=== PATIENT | male | born 1980 ===

== ENCOUNTER 2018-10-08 21:52 | Emergency (ER) | payer OTHER ==
[~2018-10-08] VITALS: Ht 152.4 cm; Wt 54.4 kg
[~2018-10-08 21:52] MED LIST: CYCLOBENZAPRINE10 MG PO; HYDROCODONE BIT1 T11 PO; NAPROSYN500 MG PO; NORCO 5-325 TA1 EACH PO
== END 2018-10-09 00:10 | disposition home or self-care (01) ==
LOC: ED 21:52
DX: S80.11XA Contusion of right lower leg, initial encounter (principal); M54.6 Pain in thoracic spine; Z79.899 Other long term (current) drug therapy; W55.12XA Struck by horse, initial encounter; Y93.89 Activity, other specified; Y92.89 Other specified places as the place of occurrence of the external cause; Y99.8 Other external cause status

== ENCOUNTER 2020-12-12 20:08 | Emergency (ER) | payer OTHER ==
[~2020-12-12] VITALS: Wt 54.0 kg
[2020-12-12] MEDS ORDERED: NAPROXEN250 MG PO (21:51)
== END 2020-12-12 22:30 | disposition home or self-care (01) ==
LOC: ED 20:08
DX: M25.552 Pain in left hip (principal); M25.572 Pain in left ankle and joints of left foot; Z79.899 Other long term (current) drug therapy; Z98.890 Other specified postprocedural states; V80.010A Animal-rider injured by fall from or being thrown from horse in noncollision accident, initial encounter; Y93.52 Activity, horseback riding; Y92.39 Other specified sports and athletic area as the place of occurrence of the external cause; Y99.8 Other external cause status

== ENCOUNTER 2023-04-09 20:59 | Emergency (ER) | payer OTHER ==
[~2023-04-09] VITALS: Ht 157.4 cm; Wt 52.2 kg
[~2023-04-09 20:59] MED LIST changes: +NAPROXEN250 MG PO
[2023-04-09] MEDS ORDERED: PREDNISONE20 M1 PO (23:51)
[2023-04-10 00:23] LABS: BASO # 0.1 10*3/uL (0.0-0.1); BASO % 0.3 % (0.0-1.0); EOS % 0.2 % (1.0-4.0); HEMATOCRIT 39.6 % (42.0-52.0); MEAN CELL VOLUME 88.2 fl (80.0-94.0); MEAN CORPUSCULAR HGB 30.3 pg (27.0-31.0); MEAN CORPUSCULAR HGB CONC 34.3 g/dl (33.0-37.0); MEAN PLATELET VOLUME 8.7 fl (9.6-12.3); MONO # 1.3 10*3/uL (0.1-1.0); MONO % 7.5 % (3.0-9.0); NEUT # 13.1 10*3/uL (2.3-7.9); NEUT % 74.2 % (47.0-73.0); PLATELET COUNT AUTOMATED 259 10*3/uL (130-400); RED BLOOD COUNT 4.49 10*6/uL (4.50-5.90); RED CELL DISTRI WIDTH 13.8 % (0-14.5); WHITE BLOOD COUNT 17.6 10*3/uL (4.8-10.8)
[2023-04-10 00:44] LABS: ALKALINE PHOSPHATASE 46 U/L (46-116); BUN 9 mg/dl (9-23); CHLORIDE 106 mmol/L (98-107); LIPASE 28 U/L (12-53); POTASSIUM 3.8 mmol/L (3.4-5.1); SGPT/ALT 41 U/L (5-49); TOTAL PROTEIN 7.1 gm/dL (6.0-8.0)
[2023-04-10 00:45] LABS: ACT PARTIAL THROMBO TIME 23.6 SECONDS (20.0-32.1)
== END 2023-04-10 02:38 | disposition home or self-care (01) ==
LOC: ED 20:59
PROVIDERS: Internal Medicine
DX: M54.50 Low back pain, unspecified (principal); Z98.890 Other specified postprocedural states

== ENCOUNTER 2023-10-28 22:51 | Emergency (ER) | payer OTHER ==
[~2023-10-28] VITALS: Ht 134.6 cm; Wt 77.1 kg
[~2023-10-28 22:51] MED LIST changes: +PREDNISONE20 M1 PO
[2023-10-28] MEDS ORDERED: Ketorolac Tromethamine 60 MG/2 ML VIAL IM ONE (23:25)
== END 2023-10-29 00:08 | disposition home or self-care (01) ==
LOC: ED 22:51
DX: S93.401A Sprain of unspecified ligament of right ankle, initial encounter (principal); S90.01XA Contusion of right ankle, initial encounter; Z98.890 Other specified postprocedural states; X58.XXXA Exposure to other specified factors, initial encounter; Y93.52 Activity, horseback riding; Y92.39 Other specified sports and athletic area as the place of occurrence of the external cause; Y99.8 Other external cause status

== ENCOUNTER 2024-01-28 22:38 | Emergency (ER) | payer OTHER ==
[~2024-01-28] VITALS: Wt 59.6 kg
[2024-01-28] MEDS ORDERED: Ondansetron Hydrochloride 4 MG/2 ML VIAL IV ONE (22:45)
[2024-01-28] MEDS ORDERED: HYDROmorphONE Hydrochloride 0.5 MG/0.5 ML SYRINGE IV ONE (22:45)
[2024-01-28] MEDS ORDERED: IOHEXOL 300 MG/ML 100 ML VIAL IV ONE (23:25)
[2024-01-28 23:34] LABS: BASO # 0.1 10*3/uL (0.0-0.1); BASO % 0.5 % (0.0-1.0); EOS # 0.1 10*3/uL (0.0-0.4); EOS % 0.4 % (1.0-4.0); HEMATOCRIT 39.2 % (42.0-52.0); LYMPH % 14.6 % (27.0-41.0); MEAN CELL VOLUME 90.7 fl (80.0-94.0); MEAN CORPUSCULAR HGB 29.4 pg (27.0-31.0); MEAN CORPUSCULAR HGB CONC 32.4 g/dl (33.0-37.0); MEAN PLATELET VOLUME 8.5 fl (9.6-12.3); MONO # 1.2 10*3/uL (0.1-1.0); MONO % 8.6 % (3.0-9.0); NEUT # 10.1 10*3/uL (2.3-7.9); NEUT % 75.1 % (47.0-73.0); PLATELET COUNT AUTOMATED 299 10*3/uL (130-400); RED BLOOD COUNT 4.32 10*6/uL (4.50-5.90); RED CELL DISTRI WIDTH 13.7 % (0-14.5); WHITE BLOOD COUNT 13.4 10*3/uL (4.8-10.8)
[2024-01-28 23:53] LABS: BUN 10 mg/dl (9-23); CHLORIDE 105 mmol/L (98-107); POTASSIUM 3.8 mmol/L (3.4-5.1)
[2024-01-29] MEDS ORDERED: HYDROmorphONE Hydrochloride 1 MG/ML SYR IV ONE (01:25)
== END 2024-01-29 02:45 | disposition short-term general hospital (02) ==
LOC: ED 22:38
PROVIDERS: Internal Medicine
DX: S32.302A Unspecified fracture of left ilium, initial encounter for closed fracture (principal); S40.022A Contusion of left upper arm, initial encounter; S70.212A Abrasion, left hip, initial encounter; Z98.890 Other specified postprocedural states; V80.010A Animal-rider injured by fall from or being thrown from horse in noncollision accident, initial encounter; Y93.52 Activity, horseback riding; Y92.39 Other specified sports and athletic area as the place of occurrence of the external cause; Y99.8 Other external cause status

== ENCOUNTER 2025-02-03 23:19 | Emergency (ER) | payer OTHER ==
[2025-02-03] MEDS ORDERED: Lidocaine Hydrochloride 30 ML VIAL SC ONE (23:45)
[2025-02-03] MEDS ORDERED: Lidocaine Hydrochloride 2% 5 ML SDV IJ ONE (23:50)
[2025-02-04] MEDS ORDERED: CEPHALEXIN 500 MG CAP PO ONE (00:40)
[2025-02-04] MEDS ORDERED: Bacitracin Zinc 14 GM TUBE T ONE (00:40)
[2025-02-04] MEDS ORDERED: CEPHALEXIN500 M1 PO (00:51)
== END 2025-02-04 01:17 | disposition home or self-care (01) ==
LOC: ED 23:19
DX: S91.114A Laceration without foreign body of right lesser toe(s) without damage to nail, initial encounter (principal); Z79.899 Other long term (current) drug therapy; W22.8XXA Striking against or struck by other objects, initial encounter; Y93.89 Activity, other specified; Y92.89 Other specified places as the place of occurrence of the external cause; Y99.8 Other external cause status